=== PATIENT | female | born 1995 | race African-American/Black ===

== ENCOUNTER → 2017-05-30 | Outpatient (CLI) | payer OTHER ==
[2017-05-30 15:48] LABS: BASO % 0.5 % (0.0-1.0); EOS # 0.1 10^3/uL (0.0-0.50); EOS % 0.7 % (0.0-3.0); IMMATURE GRANULOCYTE % 0.5 % (0-0); LYMPH # 1.5 10^3/uL (1.5-6.5); LYMPH % 18.8 % (24.0-44.0); MEAN CORPUSCULAR HEMOGLOBIN 28.8 pg (27.0-33.0); MEAN CORPUSCULAR HGB CONC 32.8 g/dl (32.0-36.5); MEAN CORPUSCULAR VOLUME 87.8 fl (80.0-96.0); MONO # 0.6 10^3/uL (0.0-0.8); MONO % 6.7 % (0.0-5.0); NEUTROPHILS % 72.8 % (36.0-66.0); PLATELET COUNT, AUTOMATED 170 10^3/uL (150-450); RED CELL DISTRIBUTION WIDTH 13.5 % (11.5-14.5); WHITE BLOOD COUNT 8.2 10^3/uL (4.0-10.0)
[2017-05-31 10:35] LABS: HBsAg Prenatal NEGATIVE (NEGATIVE)
== END ==
LOC: M SMT 11:12
PROVIDERS: ATTEND Specialist
DX: Z34.81 Encounter for supervision of other normal pregnancy, first trimester (principal)

== ENCOUNTER → 2017-06-30 | Outpatient (REF) | payer OTHER | LOC: M LAB REF 17:11 | PROVIDERS: ATTEND Advanced Practice Midwife | DX: Z34.81 Encounter for supervision of other normal pregnancy, first trimester (principal) ==

== ENCOUNTER → 2017-07-31 | Outpatient (CLI) | payer OTHER | LOC: M SMT 11:27 | PROVIDERS: ATTEND Advanced Practice Midwife | DX: Z13.79 Encounter for other screening for genetic and chromosomal anomalies (principal) ==

== ENCOUNTER → 2017-08-01 | Outpatient (REF) | payer OTHER | LOC: M LAB REF 13:59 | PROVIDERS: ATTEND Advanced Practice Midwife | DX: O26.852 Spotting complicating pregnancy, second trimester (principal); Z3A.00 Weeks of gestation of pregnancy not specified ==

== ENCOUNTER → 2017-08-10 | Outpatient (CLI) | payer OTHER | LOC: M RAD 10:24 | DX: Z36.2 Encounter for other antenatal screening follow-up (principal) ==

== ENCOUNTER → 2017-10-26 | Outpatient (CLI) | payer OTHER ==
[2017-10-26 13:34] LABS: BASO % 0.3 % (0.0-1.0); EOS # 0.1 10^3/uL (0.0-0.50); EOS % 1.4 % (0.0-3.0); HEMATOCRIT 31.9 % (36.0-47.0); HEMOGLOBIN 10.3 g/dl (12.0-16.0); LYMPH # 1.2 10^3/uL (1.5-6.5); LYMPH % 16.9 % (24.0-44.0); MEAN CORPUSCULAR HEMOGLOBIN 29.1 pg (27.0-33.0); MEAN CORPUSCULAR HGB CONC 32.3 g/dl (32.0-36.5); MEAN CORPUSCULAR VOLUME 90.1 fl (80.0-96.0); MONO # 0.6 10^3/uL (0.0-0.8); MONO % 8.6 % (0.0-5.0); NEUTROPHILS # 5.1 10^3/uL (1.8-7.7); NEUTROPHILS % 71.8 % (36.0-66.0); PLATELET COUNT, AUTOMATED 164 10^3/uL (150-450); RED BLOOD COUNT 3.54 10^6/uL (4.00-5.40); RED CELL DISTRIBUTION WIDTH 14.1 % (11.5-14.5); WHITE BLOOD COUNT 7.1 10^3/uL (4.0-10.0)
[2017-10-26 13:57] LABS: GLUCOSE CHALLENGE TEST 1 HOUR 95 MG/DL (LESS THAN 140)
[2017-10-27 08:45] LABS: RH ONLY RHOGAM 1 1
== END ==
LOC: M SMT 10:16
DX: Z34.83 Encounter for supervision of other normal pregnancy, third trimester (principal)

== ENCOUNTER 2017-11-19 13:02 | Outpatient (CLI) | payer OTHER | END 2017-11-19 14:05 | disposition home or self-care (01) | LOC: M LDO 13:02 | DX: O36.8130 Decreased fetal movements, third trimester, not applicable or unspecified (principal); Z3A.33 33 weeks gestation of pregnancy | CPT/HCPCS: 76815 ==

== ENCOUNTER → 2017-12-13 | Outpatient (CLI) | payer OTHER ==
[2017-12-13 13:23] LABS: HEMATOCRIT 34.8 % (36.0-47.0); HEMOGLOBIN 11.3 g/dl (12.0-15.5); MEAN CORPUSCULAR HEMOGLOBIN 29.6 pg (27.0-33.0); MEAN CORPUSCULAR HGB CONC 32.5 g/dl (32.0-36.5); MEAN CORPUSCULAR VOLUME 91.1 fl (80.0-96.0); PLATELET COUNT, AUTOMATED 153 10^3/uL (150-450); RED BLOOD COUNT 3.82 10^6/uL (4.00-5.40); RED CELL DISTRIBUTION WIDTH 15.8 % (11.5-14.5); WHITE BLOOD COUNT 6.3 10^3/uL (4.0-10.0)
== END ==
LOC: M SMT 10:04
DX: Z34.83 Encounter for supervision of other normal pregnancy, third trimester (principal)
CPT/HCPCS: 85027

== ENCOUNTER 2017-12-28 03:55 | Outpatient (CLI) | payer OTHER | END 2017-12-28 07:25 | disposition home or self-care (01) | LOC: M LDO 03:55 | DX: O47.1 False labor at or after 37 completed weeks of gestation (principal); Z3A.38 38 weeks gestation of pregnancy | CPT/HCPCS: 59025 ==

== ENCOUNTER 2018-01-08 12:32 | Inpatient (IN) | payer OTHER ==
[2018-01-08 13:34] LABS: HEMATOCRIT 37.7 % (36.0-47.0); HEMOGLOBIN 12.4 g/dl (12.0-15.5); MEAN CORPUSCULAR HEMOGLOBIN 28.8 pg (27.0-33.0); MEAN CORPUSCULAR HGB CONC 32.9 g/dl (32.0-36.5); MEAN CORPUSCULAR VOLUME 87.7 fl (80.0-96.0); PLATELET COUNT, AUTOMATED 193 10^3/uL (150-450); RED CELL DISTRIBUTION WIDTH 15.2 % (11.5-14.5)
[2018-01-08 14:00] LABS: ALT/SGPT 13 U/L (12-78); AST/SGOT 26 U/L (7-37); BILIRUBIN,TOTAL 0.3 MG/DL (0.2-1.0); CREATININE FOR GFR 0.79 MG/DL (0.55-1.30); GLOMERULAR FILTRATION RATE > 60.0 (>60); LDH LACTATE DEHYDROGENASE 280 U/L (84-246); URIC ACID 7.1 MG/DL (2.6-6.0)
[2018-01-08 14:11] LABS: CREATININE,RANDOM URINE 61.2 MG/DL
[2018-01-08 14:20] LABS: TOTAL PROTEIN,RANDOM URINE 251.7 MG/DL (0.0-12.0)
[2018-01-08] MEDS ORDERED: FENTANYL 2MCG/ML ROPIVACAINE 0.2% IN 0.9% NACL 200ML IVBAG As Ordered (14:21)
[2018-01-08] MEDS: LACTATED RINGER'S 1000 ML IV (15:18)
[2018-01-08] MEDS: LR 1,000 ML IV (15:18)
[2018-01-08] MEDS ORDERED: OXYTOCIN DRIP 30 UNITS in APPROPRIATE DILUENT 1 EA IV (15:45)
[2018-01-08] MEDS ORDERED: NALOXONE INJ 0.4 MG/1 ML VIAL (J2310) IV (16:00)
[2018-01-08] MEDS ORDERED: diphenhydrAMINE INJ 50MG/ML VIAL (J1200) IV (16:00)
[2018-01-08] MEDS ORDERED: EPIDURAL COMMENT XX (16:00)
[2018-01-08] MEDS ORDERED: ePHEDrine SULFATE 25 MG/5 ML(5MG/ML) SYRINGE IV (16:00)
[2018-01-08] MEDS ORDERED: FENTANYL/ROPIVACAINE/NACL BAG 200 ML EPIDURAL (16:00)
[2018-01-08] MEDS ORDERED: EPIDURAL/PCA KEYS XX (16:00)
[2018-01-08] MEDS ORDERED: LACTATED RINGER'S 1000 ML IV (16:00)
[2018-01-08] MEDS ORDERED: ONDANSETRON 4MG/2ML VIAL (J2405) IV (16:00)
[2018-01-08] MEDS ORDERED: REFRIGERATOR IV KEYS XX (16:00)
[2018-01-08] MEDS ORDERED: OXYTOCIN 30 UNITS IN 0.9% NaCl 500ML IV BAG (J2590) As Ordered (21:05)
[2018-01-08] MEDS ORDERED: ANUSOL HC CREAM 30GM TOP (23:00)
[2018-01-08] MEDS ORDERED: DIBUCAINE 1% OINTMENT 30GM TOP (23:00)
[2018-01-08] MEDS ORDERED: ACETAMINOPHEN 500 MG TAB PO (23:00)
[2018-01-09] MEDS: LIDOCAINE 1% MDV 20ML VIAL INFIL (01:51)
[2018-01-09] MEDS: OXYTOCIN DRIP 30 UNITS in APPROPRIATE DILUENT 1 EA IV (01:52)
[2018-01-09] MEDS: DOCUSATE SODIUM 100 MG CAP PO (02:53)
[2018-01-09] MEDS: PRENATAL VITAMINS CHEWABLE TABLET PO (08:25)
[2018-01-09] MEDS: IBUPROFEN 800 MG TAB PO (08:25)
[2018-01-09] MEDS: MEASLES,MUMPS,RUBELLA VACCINE INJ (MMR-II) (90707) SC (13:57)
[2018-01-09 15:45] LABS: FETAL SCREEN PROF. 1 1
[2018-01-09] MEDS ORDERED: LIDOCAINE 1% MDV INJ 50 ML VIAL As Ordered (15:57)
[2018-01-09] MEDS: RHOGAM 300 MCG (1500 IU) INJ (J2790) IM (16:11)
[2018-01-10] MEDS: IBUPROFEN 800 MG TAB PO (05:35)
[2018-01-10] MEDS: PRENATAL VITAMINS CHEWABLE TABLET PO (07:58)
== END 2018-01-10 17:00 | disposition home or self-care (01) | DRG 775 ==
LOC: M LDO 12:32 → M OBS 01-09 01:17 → M LDI 13:02
PROVIDERS: Advanced Practice Midwife
PROC: 10E0XZZ Delivery of Products of Conception, External Approach (ICD-10-PCS; principal; 2018-01-08)
PROC: 0HQ9XZZ Repair Perineum Skin, External Approach (ICD-10-PCS; 2018-01-08)
PROC: 30233S1 Transfusion of Nonautologous Globulin into Peripheral Vein, Percutaneous Approach (ICD-10-PCS; 2018-01-09)
DX: O48.0 Post-term pregnancy (principal); Z37.0 Single live birth; Z3A.40 40 weeks gestation of pregnancy; D64.9 Anemia, unspecified; O69.81X0 Labor and delivery complicated by cord around neck, without compression, not applicable or unspecified; O70.0 First degree perineal laceration during delivery; O14.94 Unspecified pre-eclampsia, complicating childbirth; O99.02 Anemia complicating childbirth